=== PATIENT | female | born 1955 | race Two or more races ===

== ENCOUNTER 2019-06-14 12:36 | Outpatient (CLI) | payer OTHER | END 2019-06-14 12:51 | disposition home or self-care (01) | LOC: MAMO-SONO 12:36 | DX: Z12.31 Encounter for screening mammogram for malignant neoplasm of breast (principal); Z87.898 Personal history of other specified conditions; M54.2 Cervicalgia; M54.5 Low back pain ==

== ENCOUNTER 2021-09-20 15:09 | Outpatient (CLI) | payer OTHER | END 2021-09-20 15:16 | disposition home or self-care (01) | LOC: RAD 15:09 | PROVIDERS: ATTEND Physical Medicine & Rehabilitation | DX: M25.551 Pain in right hip (principal); M25.552 Pain in left hip; M54.59 Other low back pain ==

== ENCOUNTER 2022-09-13 09:46 | Outpatient (CLI) | payer OTHER | END 2022-09-13 10:00 | disposition home or self-care (01) | LOC: RAD 09:46 | PROVIDERS: ATTEND Internal Medicine Cardiovascular Disease | DX: I10 Essential (primary) hypertension (principal); R06.02 Shortness of breath ==

== ENCOUNTER 2022-09-30 08:46 | Outpatient (CLI) | payer OTHER | END 2022-09-30 08:48 | disposition home or self-care (01) | LOC: NUCLEAR 08:46 | PROVIDERS: ATTEND Internal Medicine Cardiovascular Disease | DX: R42 Dizziness and giddiness (principal); I10 Essential (primary) hypertension ==

== ENCOUNTER 2023-03-01 09:49 | Outpatient (CLI) | payer OTHER | END 2023-03-01 09:54 | disposition home or self-care (01) | LOC: RAD 09:49 | PROVIDERS: ATTEND Orthopaedic Surgery | DX: M79.671 Pain in right foot (principal) ==

== ENCOUNTER 2024-04-19 10:42 | Outpatient (CLI) | payer OTHER | END 2024-04-19 10:51 | disposition home or self-care (01) | LOC: MAMO-SONO 10:42 | PROVIDERS: ATTEND Internal Medicine Endocrinology, Diabetes & Metabolism | DX: N64.0 Fissure and fistula of nipple (principal); Z12.31 Encounter for screening mammogram for malignant neoplasm of breast; E04.1 Nontoxic single thyroid nodule ==

== ENCOUNTER 2024-07-11 07:59 | Outpatient (CLI) | payer OTHER | END 2024-07-11 08:15 | disposition home or self-care (01) | LOC: TOM 07:59 | PROVIDERS: ATTEND Family Medicine | DX: R10.10 Upper abdominal pain, unspecified (principal) | CPT/HCPCS: 74177; Q9965 ==